=== PATIENT | male | born 1985 | race Caucasian/White ===

== ENCOUNTER 2019-01-05 10:45 | Emergency (ER) | payer OTHER ==
[~2019-01-05] VITALS: Ht 172.7 cm; Wt 77.1 kg
[2019-01-05] MEDS ORDERED: NORCO 5-325 TA1 EACH PO ×2 (13:05→13:12)
[2019-01-05 13:52] VITALS: BP 158/29
== END 2019-01-05 13:52 | disposition home or self-care (01) ==
LOC: M.ERS 10:45
DX: S43.004A Unspecified dislocation of right shoulder joint, initial encounter (principal); W10.9XXA Fall (on) (from) unspecified stairs and steps, initial encounter; Y93.89 Activity, other specified; Y92.89 Other specified places as the place of occurrence of the external cause; Y99.8 Other external cause status